=== PATIENT | female | born 1960 | race African-American/Black ===

== ENCOUNTER 2017-09-14 04:26 | Emergency (ER) | payer OTHER ==
[~2017-09-14] VITALS: Ht 157.5 cm; Wt 127.0 kg
--- NOTE | ~2017-09-14 | EKG ---
[place] [address] [facility] [place] [address] ELECTROCARDIOGRAM REPORT Name: SHILA GREGORY 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 : 1960 Requested By: Efren Sterling Order Number: [id number] MD: Malachi Benites Measurements Intervals [place] Rate: 72 P: 52 GA: 206 QRS: 30 QRSD: 78 T: 19 QT: 390 QTc: 427 Interpretive Statements Sinus rhythm Borderline prolonged GA interval Borderline T abnormalities, anterior leads No previous ECG available for comparison Electronically Signed On 09-14-2017 7:57:34 CDT by Malachi Benites [email or web address] <ELECTRONICALLY SIGNED> By: Malachi Benites MD, [facility] 09/14/17 [id number] Malachi Benites MD, FACC /EPI
[2017-09-14 04:51] LABS: ABSOLUTE NEUTROPHILS 3.7 thou/uL (1.4-8.2); BASOPHILS 1.1 % (0.0-2.0); EOSINOPHILS 2.6 % (0.0-3.0); HEMATOCRIT 37.4 % (37.0-47.0); LYMPHOCYTES 36.9 % (24.0-44.0); MCH 31.5 pg (26.0-34.0); MCHC 34.9 g/dL (28.0-37.0); MCV 90.3 fL (80.0-100.0); MONOCYTES 9.7 % (1.0-8.0); PLATELET COUNT 330 thou/uL (150-400); POLYS 49.7 % (36.0-66.0); RBC 4.14 mil/uL (4.20-5.00); RDW 13.8 % (10.5-14.5); WBC 7.4 thou/uL (4.0-11.0)
[2017-09-14 05:03] LABS: ANION GAP 12 mmol/L (7-16); BUN 13 mg/dL (7-18); CALCIUM 8.6 mg/dL (8.5-10.1); CHLORIDE 104 mmol/L (98-107); CO2 25 mmol/L (21-32); CREATININE 1.2 mg/dL (0.6-1.0); GLUCOSE 140 mg/dL (74-106); POTASSIUM 3.4 mmol/L (3.5-5.1); SODIUM 141 mmol/L (136-145)
[2017-09-14 05:04] LABS: APTT 26.8 Seconds (24.5-32.8); PROTIME 9.9 Seconds (9.3-11.4)
[2017-09-14] MEDS ORDERED: METFORMIN HCL500 MG PO (05:08)
[2017-09-14] MEDS ORDERED: MICROZIDE12.5 MG (05:09)
[2017-09-14 05:11] LABS: ALBUMIN 3.1 g/dL (3.4-5.0); SGOT 21 U/L (15-37); SGPT 23 U/L (30-65); TOTAL BILIRUBIN 0.5 mg/dL (<0.1-1.0); TOTAL PROTEIN 8.1 g/dL (6.4-8.2); TROPONIN-I <0.06 ng/mL (<0.06)
[2017-09-14] MEDS ORDERED: ANTIVERT25 MG PO (05:43)
[2017-09-14] MEDS ORDERED: VALIUM2 MG PO (05:43)
[2017-09-14 06:08] LABS: URINE BILIRUBIN NEGATIVE (Negative); URINE BLOOD NEGATIVE (Negative); URINE CLARITY CLEAR; URINE COLOR YELLOW; URINE GLUCOSE-RANDOM* NEGATIVE (Negative); URINE KETONES NEGATIVE (Negative); URINE LEUKOCYTES-REFLEX NEGATIVE (Negative); URINE NITRITE-REFLEX NEGATIVE (Negative); URINE PROTEIN (DIPSTICK) NEGATIVE (Negative); URINE SPECIFIC GRAVITY <= 1.005 (1.005-1.035); URINE UROBILINOGEN 0.2 E.U./dl (0.2-1.0)
[2017-09-14 06:18] LABS: AMP/METHAMP Negative (Negative); BARBITURATES Negative (Negative); BENZODIAZEPINES Negative (Negative); COCAINE Negative (Negative); METHADONE Negative (Negative); OPIATES Negative (Negative); PCP Negative (Negative)
[2017-09-14 06:55] VITALS: BP 125/50
== END 2017-09-14 06:56 | disposition home or self-care (01) ==
LOC: ER 04:26
PROVIDERS: Emergency Medicine
DX: H81.12 Benign paroxysmal vertigo, left ear (principal); R20.2 Paresthesia of skin; H91.92 Unspecified hearing loss, left ear; E03.9 Hypothyroidism, unspecified